=== PATIENT | male | born 1960 | race Caucasian/White ===

== ENCOUNTER 2021-02-02 12:45 | Outpatient (CLI) | payer OTHER | END 2021-02-02 23:59 | disposition home or self-care (01) | LOC: LAB 12:45 | PROVIDERS: ATTEND Internal Medicine Infectious Disease | DX: Z00.00 Encounter for general adult medical examination without abnormal findings (principal) ==

== ENCOUNTER 2023-04-16 11:51 | Outpatient (CLI) | payer BC | END 2023-04-16 23:59 | disposition home or self-care (01) | LOC: RAD 11:51 | PROVIDERS: ATTEND Physician Assistant | DX: S92.512A Displaced fracture of proximal phalanx of left lesser toe(s), initial encounter for closed fracture (principal); M79.672 Pain in left foot; X58.XXXA Exposure to other specified factors, initial encounter; Y93.89 Activity, other specified; Y92.89 Other specified places as the place of occurrence of the external cause; Y99.8 Other external cause status | CPT/HCPCS: 73630 ==